=== PATIENT | female | born 2000 | race Hispanic/Latino ===

== ENCOUNTER 2025-01-14 11:52 | Emergency (ER) | payer OTHER ==
[~2025-01-14] VITALS: Ht 167.6 cm; Wt 158.8 kg
[2025-01-14 11:53] VITALS: BP 151/88; PULSE 87; RESP 16; TEMP 98.8
--- NOTE | 2025-01-14 13:32 | ERN ---
General Chief Complaint: Wound Check Stated Complaint: LUMP TO RT CHEEK Time Seen by MD: 12:03 Time Seen by Midlevel: 12:03 Source: patient History of Present Illness Initial Comments 24-year-old female who presents to the emergency department due to a lump to the right cheek onset two weeks. Patient reports she has attempted to pop which she assumed was a pimple but has not had any drainage and has increased in size. Denies any pain, fever or further associated symptoms. Denies significant past medical history. Allergies: Coded Allergies: No Known Allergies (Unverified Allergy, Unknown, 01/14/25) Past Medical History Past Medical History: No Pertinent History Past Surgical History: None Female( History) LMP: January 05, 2025 ROS Dictation Constitutional: Negative for fever,chills, and weight loss Eyes: Negative for injury, pain,redness, and discharge ENT: Negative for injury,pain or swelling Cardiovascular: Negative for chest pain, palpitations, and edema Respiratory: Negative for shortness of breath, cough, and wheezing, Abdomen/GI: Negative for abdominal pain, nausea, vomiting, diarrhea, and constipation Back: Negative for injury and pain : Negative for painful urination, bleeding or discharge MS/Extremity: Negative for injury and deformity Skin: Positive for lump to the right cheek Negative for rash, and discoloration Neuro: Negative for headache, weakness, numbness, tingling, and seizure Psych: Negative for suicide ideation, homicidal ideation, and hallucinations Physical Exam Physical Exam Dictation General: awake, alert, no acute distress Head/Face: Normocephalic, atraumatic Eyes: PERRL, EOMI, normal conjunctiva ENT: oral cavity clear, oral mucosa moist Neck: Supple, normal range of motion Cardiovascular: RRR, normal S1/S2 Respiratory: CTAB, no respiratory distress Skin: Warm, dry, normal turgor, no rash. Right cheek mobile cyst, non tender, without drainage. MS/Extremity: Pulses equal, no cyanosis, neurovascular intact, FROM Neuro: COAx4, GCS 15, strength 5/5, CN 2-12 intact, normal cerebellar exam, normal gait Psych: Normal behavior, mood, and affect normal Results EKG/XRAY/US/CT/MRI Ultrasound Comment REASON: Right cheek swelling ORDERING PHYSICIAN: CAROLINE SALAS PROCEDURE: SOFT HEAD - US SOFT TISSUE HEAD Exam Type: US SOFT TISSUE HEAD Clinical Information: Right cheek swelling Comparison: None Findings and impression: Deep subcutaneous well-circumscribed complex collection 18 x 16 x 9 mm consistent with a sebaceous cyst. DICTATED BY: ANNA JOHN MD DATE: 01/14/25 1333 MDM MDM: Differential diagnosis: Abscess, cyst Rationale: 24-year-old female who presents to the emergency department due to a lump to the right cheek onset two weeks. Patient reports she has attempted to pop which she assumed was a pimple but has not had any drainage and has increased in size. Denies any pain, fever or further associated symptoms. Denies significant past medical history. Ultrasound of the right cheek obtained indicating deep subcutaneous well-circu mscribed complex collection 18 x 16 x 9 mm consistent with a sebaceous cyst. Patient was educated on findings and diagnosis. 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 Return to the emergency department if any worsening symptoms. Patient verbalized understanding. Patient stable for discharge. There are no social concerns with this patient. I independently interpreted the test that were performed, results were reviewed by me and considered findings on radiology if ordered. Medical management and examination interpretation discussions were had by me with other qualified healthcare professionals as indicated for the patient's care. ED Course Orders Procedure Category Date Status Time Us Soft Tissue Head US 01/14/25 Resulted 12:13 Vital Signs Date Time Temp Pulse Resp B/P (MAP) Pulse Ox O2 Delivery O2 Flow Rate FiO2 01/14/25 11:53 98.8 87 16 151/88 96 Room Air 0 DX & DISP Disposition: Discharge Departure Impression: Primary Impression: Cyst of face Condition: Stable Additional Instructions: Discharge home. Rest. Follow up with primary care DrSharad in 24 hours. Return to the ER for any acute changes or worsening symptoms. If any medications were prescribed take as directed. Okay to continue home medications unless otherwise discussed during your visit in the emergency room today. Patient was also advised to follow-up with primary care physician in 1 to 2 days for continued monitoring. Referrals: SELF,REFERRAL (PCP) I performed the substantive portion of the visit. I have reviewed and personally made and approve the management plan that is documented in the notes by myself or the RENÉ. I acknowledge full responsibility for the patient's management plan. CAROLINE SALAS January 14, 2025 13:32
--- NOTE | 2025-01-14 13:36 | HMCIMG ---
Exam Type: US SOFT TISSUE HEAD Clinical Information: Right cheek swelling Comparison: None Findings and impression: Deep subcutaneous well-circumscribed complex collection 18 x 16 x 9 mm consistent with a sebaceous cyst.
== END 2025-01-14 13:38 | disposition home or self-care (01) ==
LOC: EDH 11:52
DX: L72.0 Epidermal cyst (principal)
CPT/HCPCS: 76536; 99284